=== PATIENT | male | born 1975 | race Caucasian/White ===

== ENCOUNTER 2024-07-17 08:04 | Day surgery (SDC) | payer OTHER ==
[2024-07-17] MEDS: Lactated Ringers 1,000 ML IV SCH (08:16)
[2024-07-17] MEDS ORDERED: Propofol 200 MG/20 ML SDV ONE ×2 (09:03)
[2024-07-17] MEDS ORDERED: Ketamine 200 MG/20 ML MDV ONE (09:03)
[2024-07-17] MEDS ORDERED: Lidocaine 2% 20 ML MDV ONE (09:03)
[2024-07-17] MEDS ORDERED: Midazolam 1 MG/ML 2 ML SDV ONE (09:03)
[2024-07-17] MEDS ORDERED: fentaNYL 50 MCG/ML SDV ONE (09:03)
== END 2024-07-17 10:25 | disposition home or self-care (01) ==
LOC: CC.SDS 08:04
PROVIDERS: ATTEND Family Medicine
DX: K31.89 Other diseases of stomach and duodenum (principal); K57.31 Diverticulosis of large intestine without perforation or abscess with bleeding; K44.9 Diaphragmatic hernia without obstruction or gangrene; K21.9 Gastro-esophageal reflux disease without esophagitis; F17.210 Nicotine dependence, cigarettes, uncomplicated; Z79.899 Other long term (current) drug therapy
CPT/HCPCS: 00813; 87081; J2250; J2704; J3010; J3490; J7120